=== PATIENT | male | born 1975 | race Caucasian/White ===

== ENCOUNTER 2018-08-22 14:15 | Inpatient (IN) | payer MEDICAID, OTHER ==
[~2018-08-22] VITALS: Ht 162.6 cm; Wt 67.8 kg
[2018-08-22] MEDS ORDERED: tuberculin, purif. prot. deriv. 5 units/0.1ml ID ONE (17:50)
[2018-08-22] MEDS ORDERED: acetaminophen 325mg tablet PO PRN ×2 (17:50)
[2018-08-22] MEDS ORDERED: mag hydrox/Alum hydrox/simeth 30ml oral suspension PO PRN (17:50)
[2018-08-22 19:00] VITALS: BP 112/86
[2018-08-22] MEDS ORDERED: LORazepam 0.5 MG tablet PO ONE ×2 (19:40→20:40)
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
[2018-08-23 07:54] VITALS: BP 104/68
[2018-08-23 08:43] LABS: CHOL/HDL RATIO 3.8 (0.00-4.99); CHOLESTEROL 162 MG/DL (0-200); HDL CHOLESTEROL 43 MG/DL (35-60); LDL CHOLESTEROL 99 MG/DL (50-100); TRIGLYCERIDES 164 MG/DL (20-135)
--- NOTE | 2018-08-23 09:27 | NUR ---
UA/tox collected and sent.
[2018-08-23 09:37] LABS: CLARITY,URINE CLEAR (Clear); COLOR,URINE YELLOW (Yellow); GLUCOSE, URINE NEGATIVE (Neg); KETONES,URINE TRACE mg/dl (Neg); LEUKOCYTE ESTERASE ,URINE NEGATIVE (Neg); NITRITES, URINE NEGATIVE (Neg); OCCULT BLOOD,URINE NEGATIVE (Neg); PROTEIN,URINE NEGATIVE (Neg); UA COLLECTION TYPE CLN CATCH MIDSTREAM
[2018-08-23 09:46] LABS: URINE AMPHETAMINE SCREEN NEGATIVE (Neg); URINE BARBITUATE SCREEN NEGATIVE (Neg); URINE BENZODIAZEPINES SCREEN NEGATIVE (Neg); URINE CANNABINOID SCREEN POSITIVE (Neg); URINE COCAINE SCREEN NEGATIVE (Neg); URINE METHADONE SCREEN NEGATIVE (Neg); URINE OPIATE SCREEN NEGATIVE (Neg); URINE PHENCYCLIDINE SCREEN NEGATIVE (Neg)
[2018-08-23] MEDS ORDERED: tuberculin, purif. prot. deriv. 5 units/0.1ml ID ONE (10:00)
--- NOTE | 2018-08-23 10:07 | NUR ---
Malnutrition consult: Pt PO 100% regular diet meeting needs. BMI 26 healthy wt w/ no edema/wounds present. Does not qualify for malnutrition at this time. Addendum: 08/23/18 at [address] Amended: Links added.
[2018-08-23] MEDS ORDERED: NO HOME MEDS (10:51)
[2018-08-23] MEDS: hydrOXYzine 25 MG tablet PO SCH ×2 (12:16→20:22)
--- NOTE | 2018-08-23 14:10 | NUR ---
Nursing Progress Note: Chief Complaint: S/I with plan to ride bicycle into traffic or hang self Legal hold: 5150 Client on involuntary status for DTS Report received from nurse Rudy RN with use of SBAR. Why are they here: [facility] complaint of wanting to kill himself. Diagnosis/presenting symptoms: Major Depression, anxiety, OCD, PTSD, pt is depressed and anxious with SI, bowel fixation. Assessment What has happened this shift: Pt c/o depression, unable to rate it with a number today, stated that he felt great this morning until he had a BM so now doesn't feel well, stated that it was an extra large BM but he feels like more still needs to come out, stated "it's the first time I've been able to go on my own without being afraid." Pt denies SI but is uncertain what he would do if he returned to the community. Pt states, "I'm in the right place...I'm here for help." Pt states he was previously taking Zoloft for his depression and it helped but he couldn't handle the side effects which mainly were nausea and abdominal discomfort. Pt was out of room in milieu today, watched a movie in the community room, ate 100% of breakfast and lunch. Provided pruned juice to pt for c/o constipation and notified P.A. of his complaints, obtained order for Colace 100 mg PO daily to start tomorrow. Pt approached this RN before lunch and stated that now he was having diarrhea, "I don't know, maybe it's from those meds they gave me last night." Reminded pt that he had drank prune juice which was the more likely cause. Pt also has a new order for Paxil 20 mg to start tomorrow morning, and Atarax 25 mg TID routine. Pt was hesitant/leery of trying a new medication, given the first dose of Atarax before lunch, medication education provided. A couple of minutes ago he approached this RN and stated, "I don't like that new medication...it's making me anxious and agitated." Explained that this is a med we usually give people for feeling anxious, he replied, "I don't like it, I can't stand it, I'm getting agitated!" Pt then shuddered and shook his head. Suggested that pt try going to his room to lie down for awhile, do some deep breathing and try to relax, pt replied, "I already tried that, it's not helping!" Suggested pt try again, pt returned to his room. S/I, H/I: Pt denies HI, denies SI today A/VH: Pt denies Sleep: Did not sleep well per noc shift report. ADL's: Independent Group attendance: No groups today, did attend movie watching activity Were med's taken: Yes Medication side effects: Pt stated that the Atarax made him feel anxious and agitated, will continue to monitor. Mental Status Exam Appearance: Appropriate, pt wears glasses at times Eye contact: Fair Behavior: Cooperative, interacts with staff, seeks out nurse frequently Speech: Clear, audible Mood: Anxious, depressed Affect: Anxious Thought process: Fixates/ruminates on things, circumstantial Thought Content: Many somatic complaints, fixates on bowels and perceived medication side effects. Cognition: A/O X 4 Insight: Fair Judgment: Poor Interventions PRN's used: None Therapeutic interventions:1:1 assessment, therapeutic conversation, medication administration/education/monitoring for effects/side effects, coping skills education, relaxation techniques, distraction, redirection, Q 15 minute checks Restraints/seclusion/emergency medication:None Justification of Continued Inpatient Treatment: Patient has only been here for one night, continues to c/o depression which interferes with daily functioning, needs further stabilization and medication initiation/adjustment/monitoring in a safe, therapeutic environment.
--- NOTE | 2018-08-23 16:15 | NUR ---
Notified P.Narda Culp of pt's complaints of Atarax side effects, episode of increased anxiety/agitation, and noc shift's report that the pt did not sleep well last night. P.A. will review med list and consider adding something for sleep or agitation.
--- NOTE | 2018-08-23 16:59 | NUR ---
Pt still pacing, stating he's still feeling the effects of the pill, he wants to flush it out of his system. Educated pt that the effect of Atarax usually only lasts for around 4 hours, suggested pt drink water/fluids, offered pt Chamomile tea to help him relax, pt accepted the tea stating, "Chamomile, I know what that it is, I researched it, it helps with anxiety." Pt stated he was feeling less agitated, carried tea, water pitcher and a juice box to the community room to drink. Pt also requesting something to help him sleep tonight, reassured pt that I had let the P.A. know about his concerns and that he is planning on adding something for sleep tonight. Pt expressed understanding, visibly calmer.
[2018-08-23 19:55] VITALS: BP 118/77
[2018-08-23] MEDS ORDERED: quetiapine 100mg tablet PO SCH (21:00)
--- NOTE | 2018-08-24 02:29 | NUR ---
Nursing Progress Note: Chief Complaint: S/I with plan to ride bicycle into traffic or hang self Legal hold: 5150 Client on involuntary status for DTS Report received from nurse Mayra POWERS with use of SBAR. Why are they here: Patient brought into [facility] with a complaint of wanting to kill himself. Diagnosis/presenting symptoms: Major Depression, anxiety, OCD, PTSD, pt is depressed and anxious with SI, bowel fixation. Assessment What has happened this shift: Pt is watching Tv in the rec room with other patients on shift change. He is pleasant on approach and smiles. Pt seems to be constantly moving, even while sitting, either shifting in his seat almost nervously or getting up periodically. When asked how his day is going he replies, "not good, I had a really bad reaction to a medication it made me feel so anxious, I do not want that medication again." Pt also stated that he does not sleep well and that, "if I don't get a medication to help me sleep I'm just going to explode." As he says this he makes an explosion motion with his arms. Hand Scraper spoke with Kyle Olson who prescribed pt Seroquel 100mg HS. Hand Scraper educated pt on this medication and pt took pill without issue but refused the atarax. Pt was walking the halls a little while later and came up and told fiction and nonfiction prose writer that he was happy to be here and that he thinks he needs to be here and he thanked fiction and nonfiction prose writer for giving him his Seroquel. 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 Were med's taken: Yes Medication side effects:pt refuses to take atarax again Mental Status Exam Appearance: Appropriates Eye contact: Fair Behavior: Cooperative, interacts with staff Speech: Clear, audible Mood: nervous Affect: Anxious Thought process:circumstantial Thought Content:circumstantial Cognition: A/O X 4 Insight: Fair Judgment: Poor Interventions PRN's used: None Therapeutic interventions:1:1 assessment, therapeutic conversation, medication administration/education/monitoring for effects/side effects, coping skills education, relaxation techniques, distraction, redirection, Q 15 minute checks Restraints/seclusion/emergency medication:None Justification of Continued Inpatient Treatment: Patient has only been here for one night, continues to c/o depression which interferes with daily functioning, needs further stabilization and medication initiation/adjustment/monitoring in a safe, therapeutic environment.
[2018-08-24 07:00] VITALS: BP 112/75
[2018-08-24] MEDS: docusate sod 100mg capsule PO SCH (07:37)
[2018-08-24] MEDS: PARoxetine 20mg tablet PO SCH (07:37)
[2018-08-24] MEDS: hydrOXYzine 25 MG tablet PO SCH ×3 (07:37→21:00)
[2018-08-24] MEDS ORDERED: LORazepam 0.5 MG tablet PO ONE (10:50)
[2018-08-24] MEDS: QUEtiapine 25mg tablet PO SCH ×2 (13:04→17:30)
--- NOTE | 2018-08-24 16:02 | NUR ---
Nursing Progress Note: Chief Complaint: S/I with plan to ride bicycle into traffic or hang self Legal hold: 5150 Client on involuntary status for DTS Report received from Kayleigh POWERS with use of SBAR. Why are they here: Patient brought into [facility] with a complaint of wanting to kill himself. Diagnosis/presenting symptoms: Major Depression, anxiety, OCD, PTSD, pt is depressed and anxious with SI, bowel fixation. Assessment What has happened this shift: Patient had 1st dose of Paxil and became very anxious/agitated. States that he is even more suicidal than he was when he came in. Order for Ativan 1 mg obtain and administered with good relief of anxiety. Patient took a 3 hour nap, when he awoke, he started re-iterating how terrible he felt this morning. He states to RN that he would like something else to calm him down "besides seroquel". Informed him that he would have to talk to , and that I already went to the on his behalf for today's agitation. Patient is refusing Atarax due to feeling agitated yesterday after taking it. S/I, H/I: SI. A/VH: denies Sleep: Slept 7.75 hrs. ADL's: Independent Group attendance: Attended art therapy. Medication side effects: Pt stated that the Atarax made him feel anxious and agitated, Paxil makes him anxious/agitated. Mental Status Exam Appearance: Appropriate, pt wears glasses at times Eye contact: Fair Behavior: Pt. with loud, agitated statements. Speech: Clear, Mood: Labile. Affect: Labile. Thought process: Tangential. Thought Content: Many somatic complaints, fixates on bowels and perceived medication side effects. Cognition: A/O X 4 Insight: Poor. Judgment: Impaired. Interventions PRN's used: Ativan 1 mg. Therapeutic interventions:1:1 assessment, therapeutic conversation, medication administration/education/monitoring for effects/side effects, coping skills education, relaxation techniques, distraction, redirection, Q 15 minute checks. Restraints/seclusion/emergency medication:None Justification of Continued Inpatient Treatment: Patient is threatening suicide today and labile in his mood/emotions. Patient needs medication stabilization or he would be at high risk for rehospitalization.
[2018-08-24 20:20] VITALS: BP 100/68
[2018-08-24] MEDS: quetiapine 100mg tablet PO SCH (21:11)
--- NOTE | 2018-08-25 01:36 | NUR ---
Nursing Progress Note: Chief Complaint: S/I with plan to ride bicycle into traffic or hang self Legal hold: 5150 Client on involuntary status for DTS Report received from nurse Roman RN with use of SBAR. Why are they here: Patient brought into [facility] with a complaint of wanting to kill himself. Diagnosis/presenting symptoms: Major Depression, anxiety, OCD, PTSD, pt is depressed and anxious with SI, bowel fixation. Assessment What has happened this shift: Pt appears to be in an upbeat mood, sitting in the community room watching TV. Proctologist asks pt how his day went and he stand up and says, "It started off really bad but it got a bit better, it goes up and down." He goes on to say that medications get him, "amped up." He said after he took paxil on day shift he felt so anxious he started to feel suicidal again. He then explains that he is not currently feeling suicidal now that the Paxil he feels has "worn off." He is standing and talking with group underwriter and is very animated, he uses hand gestures to try to convey his points. He is pleasant but has odd social cues at times as if he isn't sure what to do with himself while in conversation so he just gets more anxious. He makes occasional eye contact and clasps his hands together periodically, shifting from left foot to right foot. 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 Medication side effects:pt refuses to take atarax again Mental Status Exam Appearance: clean, in hospital scrubs Eye contact: Fair Behavior: Cooperative, interacts with staff, appears anxious Speech: Clear, audible, slightly pressured Mood: nervous Affect: Anxious Thought process:circumstantial Thought Content:circumstantial Cognition: A/O X 4 Insight: Fair Judgment: Poor Interventions PRN's used: None Therapeutic interventions:1:1 assessment, therapeutic conversation, medication administration/education/monitoring for effects/side effects, coping skills education, relaxation techniques, distraction, redirection, Q 15 minute checks Restraints/seclusion/emergency medication:None Justification of Continued Inpatient Treatment: Patient has only been here for one night, continues to c/o depression which interferes with daily functioning, needs further stabilization and medication initiation/adjustment/monitoring in a safe, therapeutic environment.
[2018-08-25] MEDS: PARoxetine 20mg tablet PO SCH (07:57)
[2018-08-25] MEDS: docusate sod 100mg capsule PO SCH (07:57)
[2018-08-25] MEDS: QUEtiapine 25mg tablet PO SCH ×3 (07:57→16:54)
[2018-08-25 08:29] VITALS: BP 113/77
--- NOTE | 2018-08-25 16:30 | NUR ---
Nursing Progress Note: Chief Complaint: S/I with plan to ride bicycle into traffic or hang self Legal hold: 5150 Client on involuntary status for DTS Report received from Kayleigh POWERS with use of SBAR. Why are they here: Patient brought into [facility] with a complaint of wanting to kill himself. Diagnosis/presenting symptoms: Major Depression, anxiety, OCD, PTSD, pt is depressed and anxious with SI, bowel fixation. Assessment: Patient awoke in an agitated mood, complaining about medications, bowel habits. Patient has been sleeping all day except for meals. S/I, H/I: SI. A/VH: denies Sleep: Slept 7.5 hrs. ADL's: Independent Group attendance: None. Medication side effects: Pt stated that the Atarax made him feel anxious and agitated (DC'd), Paxil makes him anxious/agitated. Pt. states Paxil making him "hostile". Mental Status Exam Appearance: 42-year-old male wearing green scrubs. Eye contact: Fair Behavior: Pt. with loud, agitated statements. Sleeping the rest of the time. Speech: Clear. Mood: Labile. Affect: Labile. Thought process: Tangential. Thought Content: Many somatic complaints, fixates on bowels and perceived medication side effects. Cognition: A/O X 4 Insight: Poor. Judgment: Impaired. Interventions: 1:1 to assess for severity of symptoms. Monitored agitation. Medication education of antidepressant, and that will be an adjustment period and patient states that he will continue Paxil. PRN's used: Therapeutic interventions:1:1 assessment, therapeutic conversation, medication administration/education/monitoring for effects/side effects, coping skills education, relaxation techniques, distraction, redirection, Q 15 minute checks. Restraints/seclusion/emergency medication:None Justification of Continued Inpatient Treatment: Patient is threatening suicide today and labile in his mood/emotions. Patient needs medication stabilization or he would be at high risk for rehospitalization.
[2018-08-25 20:00] VITALS: BP 107/65
[2018-08-25] MEDS: quetiapine 100mg tablet PO SCH (20:44)
--- NOTE | 2018-08-25 22:45 | NUR ---
Nursing Progress Note: Chief Complaint: S/I with plan to ride bicycle into traffic or hang self Legal hold: voluntary Client on involuntary status for DTS Report received from nurse Roman RN with use of SBAR. Why are they here: Patient brought into [facility] with a complaint of wanting to kill himself. Diagnosis/presenting symptoms: Major Depression, anxiety, OCD, PTSD, pt is depressed and anxious with SI, bowel fixation. Assessment What has happened this shift: Patient's 5150 at 1720 this evening and patient signed voluntary. He is happy that he was able to sign in voluntarily. He states that he is feeling better now that it is "night time." He states that the mornings and daytime is never that good but his mood improves in the evenings. He denies any current thoughts of suicide but still feels a bit depressed. 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 Were med's taken: Yes, Seroquel Medication side effects:none reported this shift, none observed Mental Status Exam Appearance: clean Eye contact: Fair Behavior: Cooperative, interacts with staff Speech: Clear, audible, slightly pressured Mood:elevated Affect: content Thought process:circumstantial Thought Content:circumstantial Cognition: A/O X 4 Insight: Fair Judgment: Poor Interventions PRN's used: None Therapeutic interventions:1:1 assessment, therapeutic conversation, medication administration/education/monitoring for effects/side effects, coping skills education, relaxation techniques, distraction, redirection, Q 15 minute checks Restraints/seclusion/emergency medication:None Justification of Continued Inpatient Treatment: Patient has only been here for one night, continues to c/o depression which interferes with daily functioning, needs further stabilization and medication initiation/adjustment/monitoring in a safe, therapeutic environment.
[2018-08-26] MEDS: docusate sod 100mg capsule PO SCH (07:45)
[2018-08-26] MEDS: QUEtiapine 25mg tablet PO SCH ×3 (07:45→17:41)
[2018-08-26] MEDS: PARoxetine 20mg tablet PO SCH (07:45)
[2018-08-26 08:00] VITALS: BP 106/69
--- NOTE | 2018-08-26 13:19 | NUR ---
1:1 DISCHARGE PLANNING TAMI made TC to patient's mother and [facility] [employer] regarding pt's need to register for 290 status by 08/30/2018. T[facility] with [facility]ine [facility] [phone]. TAMI received return contact from patient's mtoher, Ching, who reports she has scheduled patient for registration on 09/01/2018. TAMI met with Dr. Vance, who has agreed pt could discharge by 08/31/2018. TAMI contacted [facility] for follow up appointments. SIMON Arnold
--- NOTE | 2018-08-26 17:06 | NUR ---
RN Progress Note: Chief Complaint: S/I with plan to ride bicycle into traffic or hang self Legal hold: Voluntary Client on voluntary status for increased anxiety w/SI Report received from nurse Rafy RN with use of SBAR. Why are they here: [facility] with a complaint of wanting to kill himself. Diagnosis/presenting symptoms: MDD, anxiety, OCD, PTSD, pt is depressed and anxious with SI, bowel fixation. Assessment What has happened this shift: SW and pt worked on phone calls to [facility] [employer] Pt c/o of anxiety but would not take the lorazepam available to him. Interacts well with peers listening to music and visiting with peers. Attempted to go to 2pm group then left in the middle of it. 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 Were med's taken: Y Medication side effects: None noted or reported Mental Status Exam Appearance: clean Eye contact: poor Behavior: anxious pacing halls rubbing his head c/o of anxiety Speech: pressured and irritable Mood: irritable Affect: reactive Thought process: circumstantial Thought Content: concerned over outside responsibilities talked to his doctor and SW about his concerns Cognition: A/Ox4 Insight: Fair Judgment: Poor Interventions PRN's used: Refused Therapeutic interventions: provided active listening, established rapport, encouraged PRNs for anxiety, encouraged group attendance and participation; maintained q15min safety checks. Justification of Continued Inpatient Treatment: Patient presents anxious and depressed and was admitted for suicidal thoughts he continues to c/o of anxiety and depression. Without further stabilization he is at risk for re-hospitalization.
[2018-08-26 20:00] VITALS: BP 122/80
[2018-08-26] MEDS: quetiapine 100mg tablet PO SCH (20:32)
--- NOTE | 2018-08-26 23:30 | NUR ---
RN Progress Note: Chief Complaint: S/I with plan to ride bicycle into traffic or hang self Legal hold: Voluntary Client on voluntary status for increased anxiety w/SI Report received from nurse Minda RN with use of SBAR. Why are they here: Patient brought into [facility] with a complaint of wanting to kill himself. Diagnosis/presenting symptoms: MDD, anxiety, OCD, PTSD, pt is depressed and anxious with SI, bowel fixation. Assessment What has happened this shift: Patient spends the majority of this shift in the group room watching TV and eating snacks. He is cooperative with staff and agrees to 1:1 assessment in the group room. He denies SI, reports some anxiety. He has a complaint of constipation and requests that he have MOM in the morning, as he is worried if he takes it at night "I don't want to stay up all night." After his evening medications and the group room gets closed patient turns himself to bed. S/I, H/I: Denies A/VH: Denies Sleep: Currently sleeping ADL's: Independent Group attendance: None this shift Were med's taken: Y Medication side effects: None noted or reported Mental Status Exam Appearance: Clean Eye contact: Fair Behavior: Anxious Speech: Clear, normal rate and volume Mood: Anxious Affect: Congruent to mood Thought process: Circumstantial Thought Content: Worried about being constipated Cognition: A/Ox4 Insight: Fair Judgment: Poor Interventions PRN's used: None Therapeutic interventions: 1:1 assessment, provided active listening to help establish rapport. Educated patient on medications, and side effects. Monitored patient for side effects. Maintained Q 15 minute safety checks. Justification of Continued Inpatient Treatment: Patient presents anxious and depressed and was admitted for suicidal thoughts he continues to c/o of anxiety and depression. Without further stabilization he is at risk for re-hospitalization.
[2018-08-27] MEDS: QUEtiapine 25mg tablet PO SCH ×3 (07:58→17:36)
[2018-08-27] MEDS: PARoxetine 20mg tablet PO SCH (07:59)
[2018-08-27] MEDS: magnesium hydroxide 30ml (MOM) UD suspension PO PRN (07:59)
[2018-08-27] MEDS: docusate sod 100mg capsule PO SCH (07:59)
[2018-08-27 08:00] VITALS: BP 110/74
--- NOTE | 2018-08-27 13:32 | NUR ---
RN Progress Note: Chief Complaint: S/I with plan to ride bicycle into traffic or hang self Legal hold: Voluntary Client on voluntary status for increased anxiety w/SI Report received from nurse Aniyah RN with use of SBAR. Why are they here: Patient brought into [facility] with a complaint of wanting to kill himself. Diagnosis/presenting symptoms: MDD, anxiety, OCD, PTSD, pt is depressed and anxious with SI, bowel fixation. Assessment What has happened this shift: 1:1 assessment at bedside. Pt c/o needing further hospitalization and suggest he will go to another hospital once "I take care of what I need too on the ." He engages during mealtimes w/peers then is usually seen back in his room resting on his bed. S/I, H/I:currently denies A/VH: Pt denies Sleep: Naps during the day ADL's: Independent Group attendance: Y Were med's taken: Y Medication side effects: None noted or reported Mental Status Exam Appearance: clean Eye contact: poor Behavior: spends time on his bed; calm and cooperative Speech: pressured and irritable Mood: calm Affect: blunted Thought process: circumstantial Thought Content: further concerns for his mental health and what will happen when he leaves here Cognition: A/Ox4 Insight: Fair Judgment: Poor Interventions PRN's used: N/A Therapeutic interventions: provided active listening, established rapport, encouraged group attendance and participation; monitorerd q15min safety checks. Justification of Continued Inpatient Treatment: Patient presents anxious and depressed and was admitted for suicidal thoughts he continues to c/o of depression. Without further stabilization he is at risk for re-hospitalization.
[2018-08-27 19:00] VITALS: BP 106/78
[2018-08-27] MEDS: quetiapine 100mg tablet PO SCH (20:21)
--- NOTE | 2018-08-27 23:17 | NUR ---
RN Progress Note: Chief Complaint: S/I with plan to ride bicycle into traffic or hang self Legal hold: Voluntary Client on voluntary status for increased anxiety w/SI Report received from nurse Minda RN with use of SBAR. Why are they here: Patient brought into [facility] with a complaint of wanting to kill himself. Diagnosis/presenting symptoms: MDD, anxiety, OCD, PTSD, pt is depressed and anxious with SI, bowel fixation. Assessment What has happened this shift: Patient is in the group room at the change of shift. He is in the group room watching TV with others but is noted to not interact with other patients. He is irritable this shift and reluctant to talk. He is worried about his bowel movements, and is concerned that he has not had a BM since the , HE requests that he gets a MOM in the morning. He is compliant with i evening medications, and goes to bed after eating an evening snack. S/I, H/I: Denies A/VH: Denies Sleep: Currently sleeping ADL's: Independent Group attendance: None this shift Were med's taken: Y Medication side effects: None noted or reported Mental Status Exam Appearance: Clean Eye contact: Fair Behavior: Watches TV, does not interact with others Speech: Clear, normal rate and volume Mood: Irritable Affect: Congruent to mood Thought process: Circumstantial Thought Content: Worried about being constipated Cognition: A/Ox4 Insight: Fair Judgment: Poor Interventions PRN's used: None Therapeutic interventions: 1:1 assessment, provided active listening to help establish rapport. Educated patient on medications, and side effects. Monitored patient for side effects. Maintained Q 15 minute safety checks. Justification of Continued Inpatient Treatment: Patient presents anxious and depressed and was admitted for suicidal thoughts he continues to c/o of anxiety and depression. Without further stabilization he is at risk for re-hospitalization.
[2018-08-28] MEDS: docusate sod 100mg capsule PO SCH (07:45)
[2018-08-28] MEDS: QUEtiapine 25mg tablet PO SCH ×3 (07:45→16:58)
[2018-08-28] MEDS: PARoxetine 20mg tablet PO SCH (07:45)
[2018-08-28 07:54] VITALS: BP 107/64
--- NOTE | 2018-08-28 08:19 | NUR ---
1:1 DISCHARGE PLANNING SW returned contact to Nematology Teacher, Kennedy Arellano at [phone], regarding patient placement upon discharge with potential Probate Conservatorship. SW left message requesting a return contact. SIMON Arnold
[2018-08-28] MEDS: magnesium hydroxide 30ml (MOM) UD suspension PO PRN (12:41)
--- NOTE | 2018-08-28 15:55 | NUR ---
RN Progress Note: Chief Complaint: S/I with plan to ride bicycle into traffic or hang self Legal hold: Voluntary Client on voluntary status for increased anxiety w/SI Report received from nurse Aniyah RN with use of SBAR. Why are they here: Patient brought into [facility] with a complaint of wanting to kill himself. Diagnosis/presenting symptoms: MDD, anxiety, OCD, PTSD, pt is depressed and anxious with SI, bowel fixation. Assessment What has happened this shift: Pt continues to complain of constipation. Report passed on to Dr. Hampton. Pt given MOM w/afternoon Seroquel. Pt up for breakfast, quiet this shift slept in room most of the day. Went into AM group for 15minutes then left and went back to his room. Pt states, I am not ready for discharge. He is scheduled to leave on 08/31/18; Friday S/I, H/I: Denies A/VH: Denies Sleep: Slept most of today ADL's: Independent Group attendance: 15min. Were med's taken: Y Medication side effects: None noted or reported Mental Status Exam Appearance: Clean Eye contact: Fair Behavior: Isolates today Speech: Clear, normal rate and volume Mood: Irritable Affect: Congruent to mood Thought process: Circumstantial Thought Content: Worried about being constipated; and worried about discharge Cognition: A/Ox4 Insight: Fair Judgment: Poor Interventions PRN's used: None Therapeutic interventions: 1:1 assessment, provided active listening to help establish rapport. Educated patient on medications, and side effects. Monitored patient for side effects. Maintained Q 15 minute safety checks. Justification of Continued Inpatient Treatment: Patient presents anxious and depressed and was admitted for suicidal thoughts he continues to c/o of anxiety and depression. Without further stabilization he is at risk for re-hospitalization.
[2018-08-28] MEDS: PARoxetine 10mg tablet PO SCH (16:59)
[2018-08-28 19:51] VITALS: BP 118/77
[2018-08-28] MEDS ORDERED: QUEtiapine 25mg tablet PO SCH (21:00)
[2018-08-28] MEDS ORDERED: quetiapine 100mg tablet PO SCH (21:00)
--- NOTE | 2018-08-28 22:05 | NUR ---
RN Progress Note: Chief Complaint: S/I with plan to ride bicycle into traffic or hang self Legal hold: Voluntary Client on voluntary status for increased anxiety w/SI Report received from nurse Minda RN with use of SBAR. Why are they here: Patient brought into [facility] with a complaint of wanting to kill himself. Diagnosis/presenting symptoms: MDD, anxiety, OCD, PTSD, pt is depressed and anxious with SI, bowel fixation. Assessment What has happened this shift: Patient in his room laying in bed at the change of shift. He agrees to a 1:1 assessment. he is sightly irritable, stating he doesn't want snack this evening as he is worried about his BM's. He also voices to this sheet writer "I am being discharged on Friday because of some court stuff, but I'm not happy, I'm not ready." Patient feels he is not ready to go home, but knows he has to because of his legal issues he has to deal with. He is cooperative with his evening medications. He plays a game with a couple other patients in the group room, interacting appropriately, then goes to bed once the game is done. S/I, H/I: Denies A/VH: Denies Sleep: Currently sleeping ADL's: Independent Group attendance: None this shift Were med's taken: Y Medication side effects: None noted or reported Mental Status Exam Appearance: Clean Eye contact: Fair Behavior: Interacted appropriately with other staff and patients Speech: Clear, normal rate and volume Mood: Fair/Preoccupied with DC Affect: Congruent to mood Thought process: Circumstantial Thought Content: Worried about being constipated, and DC Cognition: A/Ox4 Insight: Fair Judgment: Poor Interventions PRN's used: None Therapeutic interventions: 1:1 assessment, provided active listening to help maintain rapport. Educated patient on medications, and side effects. Monitored patient for side effects. Maintained Q 15 minute safety checks. Justification of Continued Inpatient Treatment: Patient presents anxious and depressed and was admitted for suicidal thoughts he continues to c/o of anxiety and depression. Without further stabilization he is at risk for re-hospitalization.
[2018-08-29] MEDS: docusate sod 100mg capsule PO SCH (07:47)
[2018-08-29] MEDS: QUEtiapine 25mg tablet PO SCH ×3 (07:48→17:49)
[2018-08-29 08:00] VITALS: BP 107/71
[2018-08-29] MEDS ORDERED: PARoxetine 10mg tablet PO SCH (08:00)
--- NOTE | 2018-08-29 15:18 | NUR ---
Initial: Pt admit w/ 5150 for DTS. Pt PO intake is 75-100% w/ some refusal of meals, meeting nutrition needs at this time. LB 08/28. Will continue to monitor. Rec: 1. Continue w/ regular diet 2. Weekly wt Addendum: 08/29/18 at [address] Amended: Links added. Addendum: 08/29/18 at [address] I have reviewed and agree with note by Vice President Marketing & Development. Bibiana Patino RD
--- NOTE | 2018-08-29 16:16 | NUR ---
RN Progress Note: Chief Complaint: S/I with plan to ride bicycle into traffic or hang self Legal hold: Voluntary Client on voluntary status for increased anxiety w/SI Report received from PRIYA Escalona with use of SBAR. Why are they here: Patient brought into [facility] with a complaint of wanting to kill himself. Diagnosis/presenting symptoms: MDD, anxiety, OCD, PTSD, pt is depressed and anxious with SI, bowel fixation. Assessment What has happened this shift: Patient up and visible on the unit this a.m., rapidly pacing [id number] in a somewhat angry/anxious way. When questioned, patient relates that he was angry and frustrated because he was being discharged on Friday and he didnt feel he would be ready by then. Patient continues to endorse depression, anxiety, suicidal thoughts. Patient also continues to perseverate on his bowels. Patient refused groups and other than pacing around the halls he spent much of the day laying on his bed. S/I, H/I: Denies A/VH: Denies Sleep: Slept most of today ADL's: Independent Group attendance: N Were med's taken: Y Medication side effects: None noted or reported Mental Status Exam Appearance: Clean Eye contact: Fair Behavior: Isolates today Speech: Clear, normal rate and volume Mood: Irritable Affect: Congruent to mood Thought process: Circumstantial Thought Content: Worried about being constipated; and worried about discharge Cognition: A/Ox4 Insight: Fair Judgment: Poor Interventions PRN's used: None Therapeutic interventions: 1:1 assessment, provided active listening to help establish rapport. Educated patient on medications, and side effects. Monitored patient for side effects. Maintained Q 15 minute safety checks. Justification of Continued Inpatient Treatment: Patient presents anxious and depressed and was admitted for suicidal thoughts he continues to c/o of anxiety and depression. Without further stabilization he is at risk for re-hospitalization.
[2018-08-29] MEDS: PARoxetine 10mg tablet PO SCH (17:49)
[2018-08-29 19:00] VITALS: BP 103/70
[2018-08-29] MEDS: quetiapine 100mg tablet PO SCH (20:33)
--- NOTE | 2018-08-30 02:01 | NUR ---
RN PROGRESS NOTE: Chief Complaint: Suicidal ideation. Legal hold: Voluntary. Client on voluntary status for DTS. Report received from PRIYA Hillman with use of SBAR. Why are they here: The patient brought in by his mother after he started c/o high anxiety and talking about shooting himself. Diagnosis/presenting symptoms: Depression with SI, MDD, anxiety, OCD, PTSD. Helpless, hopeless, poor sleep/appetite. Patient is depressed and anxious with SI, bowel fixation. Assessment: What has happened this shift: The patient was found in the group room watching tv. He reports that the reason he's here is because he's afraid of the outside world. He says that he's anxious all the time, and hasn't been helped here. He c/o anxiety over his impending discharge on Friday, relating that he doesn't feel like he's ready to go. "I have a legal appointment that can't be missed." The patient spent much of the evening watching tv until HS med pass, then went to bed. S/I, H/I: Denies A/VH: Denies Sleep: "I wake up a lot." ADL's: Independent Group attendance: No groups at night. Were med's taken: Yes Medication side effects: None noted or reported Mental Status Exam: Appearance: Clean, dressed appropriately. Eye contact: Fair Behavior: Out on unit until bedtime. Speech: Clear, normal rate and volume Mood: Irritable, anxious. Affect: Congruent to mood Thought process: Circumstantial, concrete. Thought Content: Preoccupied with fears of constipation, and discharge. Cognition: A/Ox4 Insight: Fair Judgment: Poor Interventions: PRN's used: None Therapeutic interventions: 1:1 assessment, provided active listening to help establish rapport. Educated patient on medications, and side effects. Monitored patient for side effects. Maintained Q 15 minute safety checks. Justification of Continued Inpatient Treatment: Patient presents anxious and depressed and was admitted for suicidal thoughts. He continues to c/o of anxiety and depression. Without further stabilization he is at risk for re-hospitalization.
[2018-08-30 07:48] VITALS: BP 108/70
[2018-08-30] MEDS: QUEtiapine 25mg tablet PO SCH ×3 (07:56→17:46)
[2018-08-30] MEDS: docusate sod 100mg capsule PO SCH ×2 (08:03→20:33)
[2018-08-30] MEDS: gabapentin 100mg capsule PO SCH ×3 (08:29→20:33)
--- NOTE | 2018-08-30 16:46 | NUR ---
RN Progress Note: Chief Complaint: S/I with plan to ride bicycle into traffic or hang self Legal hold: Voluntary Client on voluntary status for increased anxiety w/SI Report received from nurse Tomy RN with use of SBAR. Why are they here: Patient brought into [facility] with a complaint of wanting to kill himself. Diagnosis/presenting symptoms: MDD, anxiety, OCD, PTSD, pt is depressed and anxious with SI, bowel fixation. Assessment What has happened this shift: Presented as hyperactive, anxious and paranoid with pressured speech, throughout the day. Stating to staff, "I can't take it. Something is wrong with my brain. I can't shut it off. No one understands what I'm going through. I don't want to leave tomorrow but I have to. I have to register. It's the law. I need to find a way to get back here. I know they can't save my bed but I wish they would. I need to go back to the [facility] once I get registered and tell them I need help. I'll camp out on their lawn if I have to." Patient states "I used to have a job. I worked at [employer]. Then a month ago something went wrong in my head, and now it won't stop." When asked if medications helped him he said "No. I wished they did. Nothing helps. And now I'm being forced out. No one understands." States he was in and out of [facility] "for fifteen years" and "I learned to survive. Some prisons messed with me, some didn't. Now all this is happening to me." Does not appear to have a cause and effect mentality about his present situation. Presents as feeling desperate and tormented "by my brain." Had a long discussion with mother via phone, yelling at mother during the conversation. Limited problem-solving skills. S/I, H/I: Denies A/VH: Denies Sleep: Small nap ADL's: Independent Group attendance: N/A Were med's taken: Y Medication side effects: None noted or reported Mental Status Exam Appearance: Clean Eye contact: Fair Behavior: Isolates today Speech: Clear, normal rate and volume Mood: Irritable Affect: Congruent to mood Thought process: Circumstantial Thought Content: Worried about being constipated; and worried about discharge Cognition: A/Ox4 Insight: Fair Judgment: Poor Interventions PRN's used: None Therapeutic interventions: 1:1 assessment, provided active listening to help establish rapport. Educated patient on medications, and side effects. Monitored patient for side effects. Maintained Q 15 minute safety checks. Justification of Continued Inpatient Treatment: Patient presents anxious and depressed and was admitted for suicidal thoughts he continues to c/o of anxiety and depression. Without further stabilization he is at risk for re-hospitalization.
[2018-08-30 20:29] VITALS: BP 95/62
[2018-08-30] MEDS: quetiapine 100mg tablet PO SCH (20:32)
--- NOTE | 2018-08-31 01:34 | NUR ---
RN PROGRESS NOTE: Chief Complaint: Suicidal ideation. "I was going to ride a bicycle into traffic." Legal hold: Voluntary. Client on voluntary status for DTS. Report received from PRIYA Jose with use of SBAR. Why are they here: The patient brought in by his mother after he started c/o high anxiety and talking about shooting himself, or riding into traffic. Diagnosis/presenting symptoms: Depression with SI, MDD, anxiety, OCD, PTSD. Helpless, hopeless, poor sleep/appetite. Patient is depressed and anxious with SI, bowel fixation. Assessment: What has happened this shift: The patient was found in the group room watching the [employer] game. After the game he watched another movie, "The [employer]." He appeared relaxed at times, but anxious with thoughts of discharge tomorrow. The patient re-iterates that he's not ready to go, but has to register as a sex offender, and absolutely can't miss the appointment. He has a plan to go to the [facility] afterwards and tell them he still needs help. "I'm tormented by all this, I just want to get fixed, so I can go back to working like a normal person." The patient reports that nothing has helped him yet, but he's willing to keep trying, "Until they get it right." The patient stayed in the group room until HS med pass, then went to bed. S/I, H/I: Denies. A/VH: Denies. Sleep: Has been sleeping since HS med pass. ADL's: Independent. Group attendance: No groups at night. Were med's taken: Yes. Medication side effects: None noted or reported. Mental Status Exam: Appearance: Clean, dressed appropriately, wearing hospital green scrubs. Eye contact: Direct. Behavior: Out on unit until bedtime. Speech: Pressured. Mood: Irritable, anxious, dismayed at having to leave. Affect: Congruent to mood Thought process: Circumstantial, concrete. Thought Content: Preoccupied with fears of constipation, and discharge. Cognition: A/Ox4 Insight: Fair. Judgment: Fair. Interventions: PRN's used: None Therapeutic interventions: 1:1 assessment, provided active listening to help establish rapport. Educated patient on medications, and side effects. Monitored patient for side effects. Maintained Q 15 minute safety checks. Justification of Continued Inpatient Treatment: Patient presents anxious and depressed and was admitted for suicidal thoughts. He continues to c/o of anxiety and depression. Without further stabilization he is at risk for re-hospitalization.
[2018-08-31 08:00] VITALS: BP 103/70
[2018-08-31] MEDS: gabapentin 100mg capsule PO SCH ×2 (08:10→12:55)
[2018-08-31] MEDS: docusate sod 100mg capsule PO SCH (08:10)
[2018-08-31] MEDS: QUEtiapine 25mg tablet PO SCH ×2 (08:32→12:56)
[2018-08-31] MEDS ORDERED: QUET300T19 PO (10:23)
[2018-08-31] MEDS ORDERED: QUET25TA34 PO (10:23)
[2018-08-31] MEDS ORDERED: GABA100C PO (10:23)
[2018-08-31] MEDS ORDERED: COL100C PO (10:23)
[2018-09-01] MEDS ORDERED: GABA-530 PO (20:14)
[2018-09-01] MEDS ORDERED: QUET25TA PO (20:14)
[2018-09-01] MEDS ORDERED: QUET-1 PO (20:14)
[2018-09-01] MEDS ORDERED: DOCU100C41 PO (20:14)
== END 2018-08-31 15:30 | disposition home or self-care (01) | DRG 753 ==
LOC: ADULT MH 14:15
PROVIDERS: ADMIT Psychiatry & Neurology Psychiatry; ATTEND Psychiatry & Neurology Psychiatry
DX: F32.89 Other specified depressive episodes (principal); F41.0 Panic disorder [episodic paroxysmal anxiety]; F42.9 Obsessive-compulsive disorder, unspecified; F43.10 Post-traumatic stress disorder, unspecified; L30.9 Dermatitis, unspecified; K59.00 Constipation, unspecified; Z79.899 Other long term (current) drug therapy; Z87.891 Personal history of nicotine dependence
CPT/HCPCS: 36415; 80061; 80305; 81003; 83036; 84443; 87070; Q0177

== ENCOUNTER 2018-09-01 15:45 | Emergency (ER) | payer MEDICAID ==
[~2018-09-01] VITALS: Ht 162.6 cm; Wt 67.7 kg
[~2018-09-01 15:45] MED LIST: COL100C PO; GABA100C PO; QUET25TA34 PO; QUET300T19 PO
[2018-09-01 16:32] LABS: CLARITY,URINE CLEAR (Clear); COLOR,URINE YELLOW (Yellow); GLUCOSE, URINE NEGATIVE (Neg); KETONES,URINE NEGATIVE (Neg); LEUKOCYTE ESTERASE ,URINE NEGATIVE (Neg); NITRITES, URINE NEGATIVE (Neg); OCCULT BLOOD,URINE NEGATIVE (Neg); PROTEIN,URINE NEGATIVE (Neg); UROBILINOGEN,URINE 0.2 E.U/dL (0.2-1.0)
[2018-09-01 16:33] LABS: UA COLLECTION TYPE CLN CATCH MIDSTREAM
[2018-09-01 16:44] LABS: URINE AMPHETAMINE SCREEN NEGATIVE (Neg); URINE BARBITUATE SCREEN NEGATIVE (Neg); URINE BENZODIAZEPINES SCREEN NEGATIVE (Neg); URINE CANNABINOID SCREEN NEGATIVE (Neg); URINE COCAINE SCREEN NEGATIVE (Neg); URINE METHADONE SCREEN NEGATIVE (Neg); URINE OPIATE SCREEN NEGATIVE (Neg); URINE PHENCYCLIDINE SCREEN NEGATIVE (Neg)
--- NOTE | 2018-09-01 16:58 | NUR ---
Telepsych called. Pt placed in queue.
[2018-09-01 17:08] LABS: BASOPHILS % (AUTO) 0.6 % (0-1); EOSINOPHILS # (AUTO) 0.1 X10'3 (0-0.9); EOSINOPHILS % (AUTO) 1.4 % (0-6); HEMATOCRIT 42.3 % (42.0-52.0); HEMOGLOBIN 14.6 g/dl (14.0-17.9); LYMPHOCYTES # (AUTO) 0.6 X10'3 (1.1-4.8); LYMPHOCYTES % (AUTO) 14.3 % (21-51); MEAN CORPUSCULAR HEMOGLOBIN 31.7 PG (27.0-31.0); MEAN CORPUSCULAR HGB CONC 34.4 g/dL (33.0-36.5); MEAN CORPUSCULAR VOLUME 92.1 FL (78-98); MEAN PLATELET VOLUME 9.3 FL (7.4-10.4); MONOCYTES # (AUTO) 0.3 X10'3 (0-0.9); MONOCYTES % (AUTO) 6.3 % (2-12); NEUTROPHILS # (AUTO) 3.5 X10'3 (1.8-7.7); NEUTROPHILS % (AUTO) 77.4 % (42-75); PLATELET COUNT 222 X10'3 (140-440); WHITE BLOOD COUNT 4.5 X10'3 (4.5-11.0)
[2018-09-01 17:22] LABS: ALANINE AMINOTRANSFERASE 22 U/L (12-78); ALBUMIN 3.8 G/DL (3.4-5.0); ALBUMIN/GLOBULIN RATIO 1.1 (1.1-1.5); ALKALINE PHOSPHATASE 76 IU/L (46-116); ANION GAP 8 (8-16); ASPARTATE AMINO TRANSFERASE 12 U/L (10-37); BILIRUBIN,TOTAL 0.3 MG/DL (0.1-1.0); BLOOD UREA NITROGEN 12 MG/DL (7-18); BUN/CREATININE RATIO 15.8 (5.4-32.0); CALCIUM 8.9 MG/DL (8.5-10.1); CHLORIDE 104 MMOL/L (99-107); CREATININE 0.76 MG/DL (0.60-1.10); GLUCOSE 134 MG/DL (70-104); POTASSIUM 3.8 MMOL/L (3.5-5.1); SODIUM 143 MMOL/L (135-145); TOTAL CARBON DIOXIDE 30.9 MMOL/L (24-32); TOTAL PROTEIN 7.4 G/DL (6.4-8.2); eGFR > 90 ML/MIN
--- NOTE | 2018-09-01 17:38 | NUR ---
Pt placed in green scrubs. Room checked for safety. Mother at bedside. All belongings placed in ambulance bay lockers.
[2018-09-01 17:53] LABS: ETHANOL < 0.010 GM/DL (0.0-0.010)
--- NOTE | 2018-09-01 19:42 | NUR ---
tele psych completed. Dr. corbett , Psychiatrist, calling back with recs: meets 5150 criteria, seems desperate and wants help. Reports he will shoot himself or hang himself if his symptoms continue and he does not get help. He states to her the the meds he is taking are helping but also are not helping and MD could not get a good sense about this, but she does recommend to continue the meds: gabapentin 100 mg tid and seroquel 50 mg tid and 300 mg Hs. also recommends adding zyprexa 5 mg for aggitation, if Pt willing to take it. Mother remains at bedside. pt is aggitated and fixated on his constipation, he does not want his dinner tray d/t his constipation. vss.
[2018-09-01] MEDS ORDERED: QUET-1 PO (20:14)
[2018-09-01] MEDS ORDERED: DOCU100C41 PO (20:14)
[2018-09-01] MEDS ORDERED: QUET25TA PO (20:14)
[2018-09-01] MEDS ORDERED: GABA-530 PO (20:14)
[2018-09-01] MEDS ORDERED: OLANZapine **IM** 10 mg inj. IM ONE (20:40)
[2018-09-01] MEDS: docusate sod 100mg capsule PO SCH (21:00)
[2018-09-01] MEDS ORDERED: OLANZapine 2.5MG tablet PO ONE (21:05)
[2018-09-01] MEDS: quetiapine 100mg tablet PO SCH (21:15)
--- NOTE | 2018-09-01 21:20 | NUR ---
PT REFUSED COLACE. STATES, "LEE BEEN TAKING IT FOR A WEEK AND ITS NOT HELPING" PT IS FOCUSED ON HIS CONSTIPATION AND STATES "MEDS MAKING IT WORSE."
[2018-09-02] MEDS ORDERED: gabapentin 100mg capsule PO SCH
--- NOTE | 2018-09-02 01:30 | NUR ---
PT REMAINS ASLEEP, LYING ON HIS RIGHT SIDE WITH BLANKETS COVERING TO HIS SHOULDERS. RR 14 AND UNLABORED. SITTER WITHIN VIEW OF PT AAT.
--- NOTE | 2018-09-02 05:51 | NUR ---
PT BENITO. SITTER WITHIN VEW OF PT LOU.
--- NOTE | 2018-09-02 06:50 | NUR ---
PT PT RESTING EYES CLOSED RR EQUAL AND UNLABORED
--- NOTE | 2018-09-02 09:00 | NUR ---
WOKE PT UP FOR BREAKFAST. PT DECLINED AND RETURNED TO RESTING WITH EYES CLOSED
[2018-09-02] MEDS: gabapentin 100mg capsule PO SCH ×3 (09:32→23:41)
[2018-09-02] MEDS: QUEtiapine 25mg tablet PO SCH ×3 (09:33→21:12)
[2018-09-02] MEDS: docusate sod 100mg capsule PO SCH (09:35)
--- NOTE | 2018-09-02 11:20 | NUR ---
pt is in bed with eyes closed blamket pulled up to shoulders on left side. w/in view of sitter, he has equal, spontaneous breathing, no s/s of distress
--- NOTE | 2018-09-02 13:01 | NUR ---
Dave cali in [facility] - 09/02/18 at 1302 by CYRUS WOKE PT UP FOR BREAKFAST. PT DECLINED AND RETURNED TO RESTING WITH EYES CLOSED
--- NOTE | 2018-09-02 14:06 | NUR ---
PT IS RESTING IN BED ON LEFT SIDE, NO S/S OF DISTRESS OBSERVED, SITTER HAS PT IN SITE
--- NOTE | 2018-09-02 16:27 | NUR ---
Patient brought over from main ER to bed 23 and made comfortable.
[2018-09-02] MEDS: quetiapine 100mg tablet PO SCH (21:12)
--- NOTE | 2018-09-02 22:40 | NUR ---
Diana from [facility] called and requested information on patient, stated she will discuss with doctor and let us know result.
--- NOTE | 2018-09-03 04:10 | NUR ---
Diana from [facility] called, stated patient has been accepted but they are requesting TSH level first.
--- NOTE | 2018-09-03 04:15 | NUR ---
Dr. Eduardo notified [facility] requesting TSH level, stated she will order.
--- NOTE | 2018-09-03 06:30 | NUR ---
Asleep upon change of shift observation. Breathing even and unlabored. Undisturbed at this time.
[2018-09-03] MEDS: docusate sod 100mg capsule PO SCH (07:47)
[2018-09-03] MEDS: gabapentin 100mg capsule PO SCH ×3 (07:47→20:32)
[2018-09-03] MEDS: QUEtiapine 25mg tablet PO SCH ×3 (07:47→20:32)
--- NOTE | 2018-09-03 08:30 | NUR ---
Awakened for breakfast and AM meds. Presents as distressed. States he is here "for my stomach troubles. My head is telling me I can't go to the bathroom. That's the only reason I'm here. It's been five or six days. When I was out on the streets I could go every day or every other day. It's not right." Patient does not want to talk about his water intake or fiber intake. Poor frustration tolerance displayed at this time.
--- NOTE | 2018-09-03 10:30 | NUR ---
Patient awake at this time. Continues to perseverate about his bowels and how he needs to use the bathroom but cannot. Upon further questioning, patient stated "all these problems started in halfway. My cell mate ran the show. He told me "You have five minutes to go on the pot." I couldn't go in front of him. My nickname out in the yard was broken spoke."
--- NOTE | 2018-09-03 12:30 | NUR ---
Served lunch. Ate 100% of his meal. Continues to mention his inability to have a bowel movement. Declined any offer of a laxative. States "I don't want a laxative. I want my body to do what it is supposed to do on it's own."
--- NOTE | 2018-09-03 13:30 | NUR ---
Informed he would be transferred to [facility] today. Patient accepted this information with a blank stare. Then commented "I don't really want to go there. I'd rather go upstairs. But I know there's no bed. So I guess I'll go to [facility]."
[2018-09-03] MEDS ORDERED: metoclopramide 10mg tablet PO ONE (16:20)
--- NOTE | 2018-09-03 18:30 | NUR ---
Patient sitting on his bed eating dinner
--- NOTE | 2018-09-03 18:53 | NUR ---
One to one with the patient to assess for severity of depressive symptoms and level of paranoia. The patient reports that he feels very anxious and scared. He reports he is having problems with his OCD and is wanting help to be stabilized on medicatons. He stated that he [place] here from [email or web address] and was hoping to get a bed upstairs on the [facility] unit but currently they have no beds. He stated that currently he has no thoughts of wanting to kill himself but has been having them periodically without a plan. Stated that he is just wanting to be a normal person and work and visit with his family but states his mental health symptoms are not stable. He stated he is having some paranoia and at times believes that others are talking about him. He is denying thoughts of harming others and he is denying any auditory or visual hallucinations. He is perseverating on having a bowel movement and stated, "I can't stop obsessing about it"
[2018-09-03] MEDS ORDERED: acetaminophen 325mg tablet PO PRN (19:00)
[2018-09-03] MEDS: quetiapine 100mg tablet PO SCH (20:32)
--- NOTE | 2018-09-03 22:00 | NUR ---
The patient is currently resting on his bed and appears to be asleep.
--- NOTE | 2018-09-04 00:29 | NUR ---
The patient is currently sleeping
--- NOTE | 2018-09-04 02:09 | NUR ---
The patient appears to be asleep
--- NOTE | 2018-09-04 03:05 | NUR ---
The patient appears to be asleep
--- NOTE | 2018-09-04 05:10 | NUR ---
The patient appears to be asleep at this time
[2018-09-04 05:50] VITALS: BP 95/55
--- NOTE | 2018-09-04 06:35 | NUR ---
PT AMBULATED TO RESTROOM THEN BACK TO BED
[2018-09-04] MEDS: gabapentin 100mg capsule PO SCH (07:59)
[2018-09-04] MEDS: QUEtiapine 25mg tablet PO SCH (07:59)
[2018-09-04] MEDS: docusate sod 100mg capsule PO SCH (07:59)
--- NOTE | 2018-09-04 08:00 | NUR ---
PT AWAKE, COMPLAINING ABOUT NOT HAVING A BOWEL MOVEMENT AND HOW NO ONE HERE IS WILLING TO DO ANYTHING. PT DOES HAVE 0800 COLACE ORDERED. PT WENT BACK AND FORTH ON IF HE WAS GOING TO TAKE HIS MEDS SINCE WE AREN'T DOING ANYTHING THEN PROCEEDED TO STATE HOW HIS COMPLAINT IS IN HIS HEAD. PT DID TAKE HIS MEDICATIONS AND THEN LAID DOWN TO REST. WILL CONT. TO MONITOR
--- NOTE | 2018-09-04 09:23 | NUR ---
NURY FROM [facility] CALLED TO SAY THAT THE PT HAS BEEN ACCEPTED TO [facility] [place] WITH DR. NOBLE. PICKUP WILL BE NO LATER THAN 1115 THIS MORNING.
--- NOTE | 2018-09-04 10:45 | NUR ---
PT UP AGAIN, AMBULATED TO RESTROOM, THEN BACK TO BED.
--- NOTE | 2018-09-04 11:00 | NUR ---
PT CHANGED INTO [facility] AT BEDSIDE, [facility] WILL BE HERE IN A FEW MINUTES FOR TRANSPORT
--- NOTE | 2018-09-04 11:05 | NUR ---
PT D/C'D TO [facility] [place], [facility]
== END 2018-09-04 11:05 ==
LOC: ER 15:45
DX: F32.9 Major depressive disorder, single episode, unspecified (principal); R45.851 Suicidal ideations; F41.9 Anxiety disorder, unspecified; F12.90 Cannabis use, unspecified, uncomplicated; Z88.0 Allergy status to penicillin; Z88.5 Allergy status to narcotic agent; Z79.899 Other long term (current) drug therapy; Z87.891 Personal history of nicotine dependence
CPT/HCPCS: 36415; 80053; 80305; 80320; 81003; 84443; 85025; 99285